=== PATIENT | male | born 1940 | race Caucasian/White ===

== ENCOUNTER → 2021-10-12 13:29 | Outpatient (CLI) | payer MEDICARE, OTHER, SELFPAY ==
--- NOTE | 2021-10-12 13:48 | XR_ITS ---
FINAL REPORT CLINICAL HISTORY: dyspnea, pre-op study for cardiac procedure. FINDINGS: Two views of the chest were obtained. A left subclavian ICD is present. There is cardiomegaly. The mediastinum is normal. There is mild bibasilar atelectasis or scarring. There is no pneumothorax. There is moderate degenerative change in the thoracic spine. IMPRESSION: Mild bibasilar atelectasis or scarring. Reviewed, Interpreted and Dictated by Tam Interiano III, MD Transcribed by Sarah Deluna Authenticated and . [facility]
[2021-10-12 14:33] LABS: Basophils % 0.6 % (0.1-2.0); Eosinophils # 0.1 K/mm3 (0.0-0.4); Eosinophils % 2.3 % (0.1-12.0); Hematocrit 41.2 % (42.0-52.0); Hemoglobin 12.7 g/dL (14.1-18.0); Lymphocytes # 1.3 K/mm3 (0.7-4.5); Lymphocytes % 22.7 % (10-50); Mean Corpuscular HGB Conc 30.8 g/dL (31.8-35.4); Mean Corpuscular Hemoglobin 31.5 pg (27.0-31.2); Monocytes # 0.4 K/mm3 (0.1-1.0); Monocytes % 7.8 % (1.7-9.3); Neutrophils # 3.7 K/mm3 (1.8-7.8); Neutrophils % 66.7 % (37.0-80.0); Platelet Count 132 K/mm3 (142-424); Red Blood Count 4.03 M/mm3 (4.60-6.20); White Blood Count 5.6 K/mm3 (4.8-10.8)
[2021-10-12 15:10] LABS: Alanine Aminotransferase 20 U/L (12-78); Albumin Level 3.8 g/dl (3.5-5.0); Alkaline Phosphatase 69 U/L (38-126); Anion Gap 9.7 mEq/L (5-15); Aspartate Amino Transferase 28 U/L (17-59); Bilirubin,Direct 0.3 mg/dl (0.0-0.4); Bilirubin,Indirect 0.8 mg/dL (0.0-0.9); Bilirubin,Total 1.1 mg/dl (0.2-1.3); Bilirubin,Unconjugated 0.8 mg/dL (0.0-1.1); Blood Urea Nitrogen 50 mg/dl (9-20); Calcium 8.9 mg/dl (8.4-10.2); Carbon Dioxide 31 mmol/L (22.0-30.0); Chloride 105 mmol/L (98-107); Chol/HDL Ratio 2.6 (1-3.5); Cholesterol 104 mg/dl (140-200); Estimated Glomerular Filt Rate 30 ml/min (>60); GFR (African American) 37 ML/MIN (>60); Glucose 146 mg/dl (74-100); HDL Cholesterol 40 mg/dl (40-60); Potassium 4.7 mmoL/L (3.5-5.1); Sodium 141 mmol/L (136-145); Total Protein,Serum 6.1 g/dl (6.3-8.2); Triglycerides 107 mg/dl (30-150); VLDL Cholesterol 21 mg/dL (0-40)
[2021-10-12 15:26] LABS: Free Thyroxine Index 3.6 ug/dL (5.93-13.13); T4 (Thyroxine) 8.6 ug/dl (5.53-11.0); Triiodothryronine (T3) Uptake 42 % (23.5-40.5)
[2021-10-12 15:39] LABS: Thyroid Stimulating Hormone 0.86 uIU/mL (0.465-4.68)
[2021-10-14 08:21] LABS: Direct LDL Cholesterol 41 mg/dL (100-129)
== END ==
PROVIDERS: Visit Provider Internal Medicine
DX: E11.9 Type 2 diabetes mellitus without complications (principal); E78.5 Hyperlipidemia, unspecified; I11.0 Hypertensive heart disease with heart failure; I20.8 Other forms of angina pectoris; I48.91 Unspecified atrial fibrillation; I50.20 Unspecified systolic (congestive) heart failure; R06.00 Dyspnea, unspecified; R60.9 Edema, unspecified; Z95.0 Presence of cardiac pacemaker; Z01.812 Encounter for preprocedural laboratory examination; Z20.822 Contact with and (suspected) exposure to COVID-19; Z79.4 Long term (current) use of insulin; Z87.891 Personal history of nicotine dependence
CPT/HCPCS: 36415; 71046; 80048; 80061; 80076; 84436; 84443; 84479; 85025; C9803; U0003; U0005

== ENCOUNTER 2021-10-14 08:24 | Day surgery (SDC) | payer MEDICARE, OTHER, SELFPAY ==
[2021-10-14] VITALS (11 sets, daily range): BP systolic 120–170; BP diastolic 57–83; PULSE 70–74; RESP 12–18; O2SAT 95–99; BMI 26.3
--- NOTE | 2021-10-14 07:19 | IR_ITS ---
APPROVED REPORT Patient Location: Outpatient PROCEDURES Left heart catheterization Selective coronary angiogram Left ventriculogram INDICATION Nonischemic cardiomyopathy, Known coronary disease with progressive angina pectoris, Severe valvular disease Informed consent was obtained prior to the procedure. COMPLICATIONS None Estimated Blood Loss: Less than 10 mls TECHNIQUE One percent lidocaine was used to anesthetize the right anterior aspect of the right wrist. The right radial artery was accessed via the Seldinger technique and a 6 Haitian hydrophilic sheath was placed in the right radial artery. Following this one percent lidocaine was used to anesthetize the right anterior aspect of the right neck. The right internal jugular vein was accessed via the Seldinger technique and a 7 Haitian sheath was placed in the right internal jugular vein. Following this an arterial cocktail was administered using 5000U heparin, 2.5 mg verapamil, 1mg Lidocaine and 800mcg nitroglycerin into the right radial sheath. A papa catheter was used to perform left heart catheterization left ventriculogram and selective coronary angiography while a [place] catheter was used to perform right heart catheterization. Saturations were obtained in the pulmonary artery and right atrium. At the end of the procedure the arterial sheath was removed good hemostasis was achieved using Traclet band. Patient was transferred to the postop holding area in stable condition for venous sheath removal. ANGIOGRAPHIC RESULTS The left main artery Has a distal 10% stenosis The left anterior descending artery Has proximal 30% stenosis with a mid vessel concentric 30 to 40% stenosis The circumflex artery Nondominant with mild diffuse 10 to 20% luminal irregularities The right coronary artery Large dominant vessel and has a stent in the proximal mid and distal segment. Proximal to there is 30% in-stent restenosis with mid vessel 30% stenoses and a distal 30 to 40% stenosis. DYLAN-3 flow was present The HIGUERA ventriculogram reveals Not performed due to stage IV kidney disease The left ventricular end-diastolic pressure Not measured IMPRESSION Coronary artery as described above PLAN 1. Plan to proceed with SAAD 2. Continue medical management 3. Continue management of systolic heart failure as well as ischemic cardiomyopathy Electronically signed by : Ghassan Gleason MD 10/14/2021 15:34:07
== END 2021-10-14 14:54 | disposition home or self-care (01) ==
LOC: CATHLAB 08:25
PROVIDERS: Visit Provider Internal Medicine
DX: I25.118 Atherosclerotic heart disease of native coronary artery with other forms of angina pectoris (principal); I48.0 Paroxysmal atrial fibrillation; I50.22 Chronic systolic (congestive) heart failure; I25.5 Ischemic cardiomyopathy; Z79.899 Other long term (current) drug therapy; R29.6 Repeated falls; E11.9 Type 2 diabetes mellitus without complications; I11.0 Hypertensive heart disease with heart failure; J44.9 Chronic obstructive pulmonary disease, unspecified; Z95.0 Presence of cardiac pacemaker; Z87.891 Personal history of nicotine dependence
CPT/HCPCS: 93460; 99152; C1725; C1769; J1644; Q9967

== ENCOUNTER → 2021-11-04 07:36 | Day surgery (SDC) | payer MEDICARE, OTHER, SELFPAY ==
--- NOTE | 2021-11-04 07:45 | CA_ITS ---
APPROVED REPORT EXAM: Comprehensive 2D, Doppler, and color-flow Echocardiogram [employer] Instructor: Siobhan Boss CRT Ht: 5 ft 11 in Wt: 189lbs BSA: 2.06 BP: 112/57 mmHg Indications: Congestive Heart Failure, COPD, Shortness of Breath, Atrial Fibrillation, Hyperlipidemia, Hypertension/HDD, stent, AICD 2D Dimensions LVOT 1.89 cm (M/F) 1.5-2.5 M-Mode Dimensions RVDd 3.26 cm (0.9-2.6) LA Diam 4.68 cm (1.9-4.0) LVDd 6.05 cm (3.5-5.7) Ao Diam 3.72 cm (2.0-3.7) LVDs 4.76 cm (3.5-5.7) IVSd 1.07 cm (0.6-1.1) PWd 0.47 cm (0.6-1.1) EF (Teich) 42.50% FS 21.30% EDV (Teich) 183.40 mL ESV (Teich) 105.40 mL LV Diastology E Decel Time 257.00 (160-240 msec) E/A Ratio 2.98 MED E' 4.20 (< 7 cm/sec) MED A' 8.10 cm/s E'/MED E' Ratio 19.00 (>14) LAT E' 2.60 (<10 cm/sec) LAT A' 6.80 cm/s E/LAT E' Ratio 30.69 (>14) Aortic Valve AO Peak GR. 3.60 mmHg Mitral Valve MV E Max Dieter. 80.00 (40-130 cm/s) MV A Velocity 27.00 (40-130 cm/s) E/A Ratio 2.98 MV Decel. Time 257.00 (160-240 ms) MV PHT 75.00 ms Pulmonary Valve PV Peak Velocity 153.00 (50-150 cm/s) Tricuspid Valve TR P. Velocity 191.00 cm/s RAP Estimate 10.00 mmHg RVSP 24.50 mmHg Left Ventricle Left atrium is mildly enlarged, left ventricle is normal size mild concentric left ventricular hypertrophy, estimated ejection fraction 50% with no regional wall motion abnormality, diastolic parameters are inconclusive. Right Ventricle Right atrium and right ventricle are mildly enlarged with normal contractility. Aortic Valve Aortic valve is thickened and calcified without aortic stenosis, there is trace aortic insufficiency. Mitral Valve Mitral valve leaflets are minimally thickened, there is no mitral valve prolapse, there is no mitral stenosis, there is mild mitral regurgitation. Tricuspid Valve Tricuspid valve is grossly normal, there is mild tricuspid regurgitation, tricuspid regurgitation jet velocity is inadequate for calculation of the right ventricular systolic pressure. Pulmonic Valve Pulmonic valve is poorly visualized. Great Vessels Aortic root is normal size. Inferior vena cava is poorly visualized. Pericardium No significant pericardial effusion noted. Conclusion 1. Mildly enlarged left atrium, normal left ventricular size, mild concentric left ventricular hypertrophy, estimated ejection fraction 50% with no regional wall motion abnormality, diastolic parameters are inconclusive. 2. Mild mitral and tricuspid regurgitation. 3. Minimally thickened and calcified aortic valve without aortic stenosis, there is trace aortic insufficiency. 4. No significant pericardial effusion noted. 5. Inferior vena cava is poorly visualized. Electronically signed by : Alex Mayer MD 11/04/2021 10:29:54
[2021-11-04 07:46] LABS: Coronavirus 19, PCR Not Detected (NotDetected); Influenza A, PCR Not Detected (NotDetected); Influenza B, PCR Not Detected (NotDetected)
== END ==
PROVIDERS: Internal Medicine; Visit Provider Internal Medicine Cardiovascular Disease
DX: R06.00 Dyspnea, unspecified (principal); I48.91 Unspecified atrial fibrillation; I50.9 Heart failure, unspecified; E11.9 Type 2 diabetes mellitus without complications; Z79.4 Long term (current) use of insulin; I34.0 Nonrheumatic mitral (valve) insufficiency
CPT/HCPCS: 93306; C9803; U0003; U0005